=== PATIENT | female | born 1990 | race Caucasian/White ===

== ENCOUNTER 2021-07-10 15:21 | Emergency (ER) | payer SELFPAY ==
[~2021-07-10] VITALS: Ht 180.3 cm; Wt 82.0 kg
[2021-07-10] MEDS ORDERED: PREDNISONE 20MG TABLET PO ONE (16:30)
[2021-07-10] MEDS ORDERED: P20 MT (17:03)
[2021-07-10 17:18] VITALS: BP 115/71
== END 2021-07-10 17:20 | disposition home or self-care (01) ==
LOC: ER 15:21
DX: L23.2 Allergic contact dermatitis due to cosmetics (principal)
CPT/HCPCS: 99283; J7512